=== PATIENT | male | born 1995 | race Hispanic/Latino ===

== ENCOUNTER 2019-07-12 18:53 | Emergency (ER) | payer OTHER ==
[~2019-07-12] VITALS: Ht 170.2 cm; Wt 77.6 kg
[2019-07-12] MEDS ORDERED: CIPROFLOXACN500 MG PO (20:20)
[2019-07-12 20:45] VITALS: BP 132/78
== END 2019-07-12 20:45 | disposition home or self-care (01) | DRG 605 ==
LOC: ED 18:53
DX: S91.131A Puncture wound without foreign body of right great toe without damage to nail, initial encounter (principal); F17.200 Nicotine dependence, unspecified, uncomplicated; W45.0XXA Nail entering through skin, initial encounter; Y93.89 Activity, other specified; Y92.89 Other specified places as the place of occurrence of the external cause; Y99.0 Civilian activity done for income or pay